=== PATIENT | male | born 1960 | race Caucasian/White ===

== ENCOUNTER 2017-08-11 06:59 | Inpatient (IN) | payer OTHER ==
[2017-08-11] MEDS ORDERED: NITROGLYCERIN/D5W 50 MG/250 ML BOTTLE IV ONE (07:09)
[2017-08-11] MEDS ORDERED: NITROGLYCERIN/DEXTROSE 250 ML IV ONE (07:10)
--- NOTE | 2017-08-11 07:11 | CPEKG ---
Heart Rate: 67 RR Interval: 896 P-R Interval: 184 QRSD Interval: 110 QT Interval: 432 QTC Interval: 456 P Sage: 19 QRS Sage: 47 T Wave Sage: 97 EKG Severity - ABNORMAL ECG - EKG Impression: SINUS RHYTHM EKG Impression: NONSPECIFIC INTRAVENTRICULAR CONDUCTION DELAY EKG Impression: BORDERLINE ST DEPRESSION, ANTEROLATERAL LEADS Electronically Signed By: Curtis Tolliver 11-Aug-2017 07:14:14
--- NOTE | 2017-08-11 07:12 | EDPHY ---
H & P Time Seen by Provider: 08/11/17 07:00 HPI/ROS: CHIEF COMPLAINT: Chest pain HISTORY OF PRESENT ILLNESS: History of myocardial infarction with stent at age 39, last stress test was 5 years ago. Primary care is Dr. Brett Caal. Awakened this morning at 6:20 a.m. With severe substernal chest pain radiating to both shoulders, not pleuritic. Symptoms severe and he took for oral 325 mg aspirin at home. Arrives without shortness of breath or vomiting. Received 1 oral nitroglycerin in the ambulance. Not better worse with anything. REVIEW OF SYSTEMS: Eye: no change in vision ENT: no sore throat Cardiac: HPI Pulmonary: no cough or SOB Abdomen: no vomiting, diarrhea, abdominal pain Musculoskeletal: no back pain Skin: no rash Neuro: no headache Constitutional: no fever : no urinary symptoms A comprehensive 10 point review of systems is otherwise negative aside from elements mentioned in the history of present illness. PAST MEDICAL HISTORY: Hypertension, diabetes, cardiac stent at age 39 in [place] Social history: Tobacco smoker currently General Appearance: Alert, appears moderately uncomfortable. Eyes: No scleral icterus. ENT, Mouth: Normal mucous membranes. Respiratory: Normal respiratory effort, breath sounds equal, lungs are clear to auscultation. Cardiovascular: Regular rate and rhythm. Gastrointestinal: Abdomen is soft and non tender. Neurological: Alert, face symmetric, normal motor and sensory in extremities. Skin: Warm and dry, no rashes. Musculoskeletal: No peripheral edema. Psychiatric: Not agitated. Emergency Department course/MDM: Patient took oral aspirin at home. IV nitroglycerin drip started here for chest pain with systolic 180 and diastolic 130. Initial EKG shows suggestion of inferior NH with ST elevation in 3 and AVF with reciprocal changes in the anterior leads. 712: Cardiac alert called and discussed with Dr. Schumacher. 717: Chest x-ray normal mediastinum width, no infiltrates or pneumothorax. 740: 171/123, hr 70, chest pain decreased, 97% O2 sat. IV nitroglycerin started and IV fluid resuscitation normal saline [address] changes. 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 Schumacher. Smoking Status: Current some day smoker Constitutional: Initial Vital Signs Temperature (C) 36.6 C 08/11/17 07:11 Heart Rate 74 08/11/17 07:11 Respiratory Rate 20 08/11/17 07:11 Blood Pressure 186/120 H 08/11/17 07:11 O2 Sat (%) 96 08/11/17 07:11 O2 Delivery Mode Room Air Allergies/Adverse Reactions: No Known Allergies Allergy (Unverified 08/11/17 07:11) Home Medications: Medication Instructions Recorded Lisinopril 08/11/17 Medical Decision Making - Diagnostics EKG Interpretation: 12-lead EKG interpreted by me; official reading is in trace master. My interpretation is sinus rhythm with inferior ST elevation in 3 and AVF with reciprocal anterior depression. Likely acute inferior NH. Imaging Results: Imaging Impressions Chest X-Ray 08/11/17 07:06 Impression: Borderline cardiomegaly with mild peribronchial thickening that could be related to fluid overload or bronchitis, without patrick failure. Chest x-ray does not show mediastinal widening personally interpreted Imaging: I viewed and interpreted images myself Differential Diagnosis: Differential diagnosis considered for chest pain including but not limited to myocardial ischemia, aortic dissection, pericarditis, pulmonary embolus, chest wall pain, pleural inflammation and pulmonary infectious causes. Critical Care Time: Critical care time spent by me, Dr. Tolliver, exclusively with the care of this patient was 35 minutes, exclusive of PA or TRAVEL INFORMATION CENTER SUPERVISOR time and exclusive of separate procedures. The organ system at risk was cardiovascular and I ordered multiple diagnostics, IV fluids, IV medications, cardiology consultation to stabilize the patient and prevent worsening of the patient's condition. - Data Points Laboratory Results: Laboratory Results 08/11/17 06:50 08/11/17 06:50 08/11/17 08/11/17 06:50 06:50 WBC 10.64 10^3/uL H 10^3/uL (3.80-9.50) RBC 6.14 10^6/uL 10^6/uL (4.40-6.38) Hgb 17.8 g/dL H g/dL (13.7-17.5) Hct 53.5 % H % (40.0-51.0) MCV 87.1 fL fL (81.5-99.8) MCH 29.0 pg pg (27.9-34.1) MCHC 33.3 g/dL g/dL (32.4-36.7) RDW 16.8 % H % (11.5-15.2) Plt Count 292 10^3/uL 10^3/uL (150-400) MPV 10.1 fL fL (8.7-11.7) Neut % (Auto) 55.6 % % (39.3-74.2) Lymph % (Auto) 27.8 % % (15.0-45.0) Heard % (Auto) 12.0 % % (4.5-13.0) Eos % (Auto) 3.2 % % (0.6-7.6) Baso % (Auto) 0.8 % % (0.3-1.7) Nucleat RBC Rel Count 0.0 % % (0.0-0.2) Absolute Neuts (auto) 5.92 10^3/uL 10^3/uL (1.70-6.50) Absolute Lymphs (auto) 2.96 10^3/uL 10^3/uL (1.00-3.00) Absolute Monos (auto) 1.28 10^3/uL H 10^3/uL (0.30-0.80) Absolute Eos (auto) 0.34 10^3/uL 10^3/uL (0.03-0.40) Absolute Basos (auto) 0.08 10^3/uL 10^3/uL (0.02-0.10) Absolute Nucleated RBC 0.00 10^3/uL 10^3/uL (0-0.01) Immature Gran % 0.6 % % (0.0-1.1) Immature Gran # 0.06 10^3/uL 10^3/uL (0.00-0.10) Sodium 143 mEq/L mEq/L (135-145) Potassium 3.7 mEq/L mEq/L (3.3-5.0) Chloride 98 mEq/L mEq/L (97-110) Carbon Dioxide 29 mEq/l mEq/l (22-31) Anion Gap 16 mEq/L mEq/L (8-16) BUN 14 mg/dL mg/dL (7-23) Creatinine 0.7 mg/dL mg/dL (0.7-1.3) Estimated GFR > 60 Glucose 147 mg/dL H mg/dL (70-100) Calcium 9.4 mg/dL mg/dL (8.5-10.4) Troponin I < 0.012 ng/mL ng/mL (0.000-0.034) Medications Given: Discontinued Medications Nitroglycerin/Dextrose (Nitroglycerin 200 Mcg/Ml (Premix)) 250 mls @ 0 mls/hr IV CONT ONE; Titrate PRN Reason: Protocol Stop: 08/11/17 07:11 Last Admin: 08/11/17 07:20 Dose: 250 mls Sodium Chloride (Ns) 1,000 mls @ 0 mls/hr IV EDNOW ONE; Wide Open PRN Reason: Protocol Stop: 08/11/17 07:45 Last Admin: 08/11/17 07:52 Dose: 1,000 mls Departure - Departure Disposition: To OP Cath/Surgery Clinical Impression: Acute myocardial infarction Qualifiers: Myocardial infarction type: unspecified Involved coronary artery: unspecified coronary artery Qualified Code(s): I21.9 - Acute myocardial infarction, unspecified Hypertension Qualifiers: Hypertension type: unspecified Qualified Code(s): I10 - Essential (primary) hypertension Condition: Serious
[2017-08-11 07:15] LABS: PLATELET COUNT 292 10^3/uL (150-400)
[2017-08-11] MEDS ORDERED: LIDOCAINE 1% 300 MG/30 ML SDV ONE (07:17)
[2017-08-11] MEDS ORDERED: IOPAMIDOL (ISOVUE-370) 150 ML BTL IV ONE ×2 (07:17→08:13)
[2017-08-11] MEDS ORDERED: CLOPIDOGREL BISULFATE 75 MG TAB ONE (07:17)
[2017-08-11] MEDS ORDERED: NITROGLYCERIN 1,500 MCG/15 ML VIAL MISC ONE (07:20)
[2017-08-11] MEDS ORDERED: ATROPINE SULFATE 1 MG/10 ML SYR ONE (07:20)
[2017-08-11] MEDS ORDERED: HEPARIN 10,000 UNIT/10 ML MDV (1,000 UNIT/ML) ONE (07:20)
[2017-08-11] MEDS ORDERED: fentaNYL 100 MCG/2 ML INJ ONE ×2 (07:20→08:33)
[2017-08-11] MEDS ORDERED: EPINEPHrine 1 MG/10 ML SYR IVP ONE (07:20)
[2017-08-11] MEDS ORDERED: MIDAZOLAM 2 MG/2 ML VIAL ONE ×3 (07:20→08:33)
[2017-08-11] MEDS ORDERED: BIVALIRUDIN 250 MG/5 ML VIAL IV ONE ×2 (07:21→08:09)
[2017-08-11] MEDS ORDERED: NS 1,000 ML IV ONE (07:44)
[2017-08-11] MEDS ORDERED: VERAPAMIL 5 MG/2 ML VIAL ONE (07:48)
--- NOTE | 2017-08-11 07:56 | PDPROPOC ---
Sedation Plan of Care Sedation Plan of Care: vital signs stable, mental status noted, patient educated of risks, benefits, alternatives, patient can tolerate sedation ASA Classification: ASA 3 Planned drugs: fentanyl, midazolam Mallampati Score: Class 4 Mallampati Reference Image: Patient passed 3-3-2 rule?: No (sleep apnea high risk airway)
[2017-08-11] MEDS ORDERED: niCARdipine 25 MG/10 ML VIAL IV ONE (08:24)
[2017-08-11] MEDS ORDERED: ABCIXIMAB 10 MG/5 ML VIAL ONE ×2 (08:47→08:51)
--- NOTE | 2017-08-11 08:52 | PDHPUP ---
History & Physical Update H&P update statement: This history and physical update is based on an assessment of the patient which was completed after admission or registration (within 24 hours), but prior to the surgery/procedure. H&P update: H&P reviewed & patient examined, no change in patient's condition since H&P completed
[2017-08-11] MEDS ORDERED: TICAGRELOR 90 MG TAB ONE (09:29)
--- NOTE | 2017-08-11 09:40 | PDDXCAT ---
Diagnostic Cath Note - . Date: 08/11/17 Campground Attendant: Winsome Indication: CCC Class III and IV angina on medical treatment, other (Inferior and true posterior myocardial infarction) - Procedure Access: left wrist Procedure: left heart catheterization, coronary angiography, other (coronary catheterization) - Materials Left Heart Cath size: 6F Left Heart Cath materials: standard multipack (JL4, JR4, pigtail) - Findings-Left Heart Catheterization LAD: LAD proximally is 4.5 mm in size. It is severely diseased. There is 85% obstruction of the first diagonal. There is a 90% obstruction of the second diagonal. The LAD proper after second diagonal is severely diseased with a 90% obstruction of the LAD proper. The third diagonal is the largest and 2 mm vessel without flow limiting obstruction. The mid and distal LAD are diffusely diseased. There is another flow limiting obstruction near the apex. LCX: The LCX comes from a common ostium of left main coronary cusp. It is 3mm in size. There is 100% ostial occlusion of the circumflex. SILVIA 0 flow. The circumflex proximally is 3.5 mm in size. It trifurcates into a first OM, second OM (which is the largest and occluded), and circumflex proper. RCA: The RCA is dominant. It is 4 mm in size proximally. It has an 80% obstruction in the mid right, distal to the RV branch takeoff. The vessel is diffusely diseased. EDP: Not measured. LVEF: No LV gram was performed due to the amount of IV contrast the patient recieved in order to repair the infarct related vessel. Complications: NONE. Estimated blood loss: <50ml Closure method: TR Band Assessment: The patient has diffuse upper [place]aponi vessel coronary disease with severe obstructive disease involving the RCA and LAD distribution. He is diabetic, morbidly obese and continues to smoke. He is at highest risk of recurrent events. Plan: The patient has diffuse and severely obstructive disease in the LAD, diagonals 1 and 2, and the RCA. He will require bypass surgery due to the severity of disease. Dual antiplatelet therapy with Aspirin 81mg and Brilinta 90mg BID for at least 4 to 6 weeks following bare metal stent implantation. Decisions to stop dual antiplatelet therapy before this time should involve our office at [facility], . Intervention: 6 Czech 4.0 EBU catheter was used for guide catheter support. A 0.014 Intuition wire was advanced across the circ OM 2 under direct fluoroscopic and angiographic guidance. A second wire was advanced into the circumflex proper to help improve guide catheter support. The patient's body habitus precluded significant angulation of the image intensifier and guide support was inadequate. The circ OM 2 was ballooned open with a 2.0 x 15 Emerge balloon improving the flow from SILVIA 0 to SILVIA I. A 6 Czech Guideliner was advanced over the two wires and the circ OM 2 was secondarily ballooned with a 4.0 x 15 Emerge balloon. We were then able to better visualize the circumflex with the Guidliner in place. It was clear that the obstruction was in the middle fork of a trifurcation of the proximal circumflex. We then performed acute infarct angioplasty with a 3.5 x 24 mm Rebel Bare Metal Stent, deployed at a maximal pressure of 18 DANIEL. This was deployed in the ostium of the circ OM 2 without compromise of the circ proper or the OM 1 branch. The guiding catheter wires and Guideliner and stent delivery system were all removed from the body. The catheter was exchanged for a JL4 diagnostic catheter. Selective injections of the left circumflex documented a 10 % residual steatosis and SILVIA III flow to distal vessel. There was still evidence of branch vessel obstruction which may have been related to plaque or clot because the patient was clinically stable and chest pain free we did not elect to proceed with further intervention given the volume of contrast medium which had been required. Selective injection of the LAD documented the severe disease previously noted in this repot. A BARE METAL STENT WAS PURPOSEFULLY USED IN ORDER TO LEAVE THE OPTIONS OPEN FOR A BYPASS SURGERY IN THIS DIABETIC PATIENT. 4-6 WEEKS OUT WE SHOULD BE ABLE TO SAFELY STOP DUAL ANTIPLATELET THERAPY AROUND THE TIME OF AN OPERATION. Patient Problems: Problems Problem Status Onset Acute myocardial infarction Acute Hypertension Acute
[2017-08-11] MEDS ORDERED: ASPIRIN EC 325 MG TAB PO ONE (09:45)
[2017-08-11] MEDS ORDERED: NITROGLYCERIN 0.4 MG BTL SL PRN (09:45)
[2017-08-11] MEDS ORDERED: LORazepam 2 MG/ML INJ IVP PRN (09:45)
[2017-08-11] MEDS ORDERED: NS 1,000 ML IV SCH (09:45)
[2017-08-11] MEDS ORDERED: OXYCODONE/APAP 5/325 TAB PO PRN (09:45)
[2017-08-11] MEDS ORDERED: ATROPINE SULFATE 1 MG/10 ML SYR IVP PRN (09:45)
[2017-08-11] MEDS ORDERED: ONDANSETRON 4 MG/2 ML VIAL IVP PRN (09:45)
[2017-08-11] MEDS ORDERED: TEMAZEPAM 15 MG CAP PO PRN (09:45)
[2017-08-11] MEDS ORDERED: HYDROCODONE/APAP 5/325 TAB PO PRN (09:45)
[2017-08-11] MEDS ORDERED: TICAGRELOR 90 MG TAB PO ONE (09:45)
--- NOTE | 2017-08-11 10:36 | GHP ---
[f rep st] HISTORY AND PHYSICAL DATE OF ADMISSION: 08/11/2017 CHIEF COMPLAINT: "Doctor, I'm having chest pain." HISTORY OF PRESENT ILLNESS: The patient is a 57-year-old obese diabetic man who presented to the [facility] department with acute onset of chest discomfort. The patient has a history of a prior stent a t the time of a threatened myocardial infarction 18 years ago at age 39. His last stress test was 5 years ago. His primary care doctor is Dr. Corbin at [place]. He awakened this morning at 6:20 am wi th severe retrosternal chest pain that radiated to both shoulders. He took 325 mg of aspirin at home and presented to the emergency department via ambulance for further evaluation. He has not been rec ently ill, had recent protracted travel. REVIEW OF SYSTEMS: A 10-point review of systems is negative for cough, recent fever, shortness of br eath, melena, hematemesis, or rash. PAST MEDICAL HISTORY: Significant for cardiac stent in [place]; he believes at the [facility] in [place]. He has a history of hypertension, diabetes, and dyslipidemia. He continues to smoke a pack of cigarettes per week. History of sleep apnea. PHYSICAL EXAMINATION: GENERAL: The patient appears anxious and is diaphoretic. He appears to be ac utely ill. He is morbidly obese. VITAL SIGNS: His blood pressure is elevated at 186/120, heart rate is 76 and regular, respirations are 16 and nonlabored. He has 96% oxygen sat on 2 L by nasal cannul a. The temperature is 36.6. NECK: No obvious JVD. HEART: Normal S1 and S2 without a murmur or rub . His heart sounds are very distant, given his body habitus, and this precludes an accurate examinat ion. ABDOMEN: Obese with positive bowel sounds. It is nondistended and nontender. EXTREMITIES: W arm and dry. He has palpable dorsalis pedis and posterior tibial and radial pulses bilaterally. He had a plethysmography trace assisted Sterling test documenting dual arterial supply to the left hand wit h a planned approach, given his body habitus, of the left radial approach. NEUROLOGIC: Pertinent fo r the fact that he is alert and oriented x3. PSYCHIATRIC: He is cooperative and appears to be anxio us and somewhat worried. He is in fairly obvious pain. IMAGING: His EKG reveals sinus rhythm with ST-segment elevation in II, III, and AVF, as well as reci procal changes and ST depression in V2 and V3, consistent with an inferior posterior pattern. These findings are consistent with acute inferior and probably true posterior myocardial infarction. The portable chest x-ray reveals some degree of apical lordosis. The cardiac silhouette is significa ntly enlarged. This may be in part secondary to the portable examination. The lung markings are dif fusely increased which could be related to fluid overload. I did review the raw data of the chest x-ray and EKG. LABORATORY STUDIES: White count of 10.64, elevated hemoglobin and hematocrit of 17.8 and 53.5, plate let count 292. BUN and creatinine were 14 and 0.7 with an estimated GFR of 60. Fasting blood glucos e is 147. His calcium is 9.4. Sodium and potassium were 143 and 3.7. The troponin is less than 0.0 12 ng/mL on the initial presentation. SOCIAL HISTORY: He is a current smoker. He does not abuse alcohol or illicit drugs. 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 IMPRESSION AND PLAN: The patient has an acute ST-segment elevation myocardial infarction involving t he inferior and probably posterior circulation. The patient will be taken emergently to the cardiac catheterization laboratory for definitive angiography and probable acute infarct angioplasty and sten t implantation of the infarct-related artery. I have explained the risks, benefits, and alternatives of this course of action to the patient who understands and is willing to proceed as planned. Copy requested to: PCP /[id number]/MODL
--- NOTE | 2017-08-11 11:53 | PDMN ---
Medical Necessity Medical necessity: Patient meets inpatient criteria per physician note and MCG M -230 ID (presents w/acute chest pain, history of CAD; EKG shows acute inferior ID, probable true posterior ID; taken emergently to laborer construction or leak gang where diffuse CAD was noted/cardiac bypass surgery recommended; bare metal stenting in interim.)
--- NOTE | 2017-08-11 13:33 | ASMTCMCOM ---
CM Note CM Note Notes: Pt admitted w/chest pain. He was taken for emergent heart cath and found to have diffuse disease, received stent, and will need bypass surgery in 4-6 weeks per MD note. Anticipate that he will dc home independantly when medically stable and then likely return for surgery. Date Signed: 08/11/2017 01:32 PM Electronically Signed By:Jenna Henley RN
[2017-08-11 15:29] LABS: CREATINE KINASE 2584 IU/L (0-224)
--- NOTE | 2017-08-11 16:43 | GCON ---
[f rep st] CONSULTATION PULMONARY/CRITICAL CARE CONSULTATION DATE OF CONSULTATION: 08/11/2017 REQUESTING PROVIDER: Lowell Schumacher MD. REASON FOR REFERRAL: Evaluation and management of dyspnea and obstructive sleep apnea. HISTORY: The patient is a 57-year-old male with a prior history of coronary artery disease status po st stenting, who presented to the hospital this morning with acute onset of chest pain. He was taken emergently to the catheterization lab where he was found to have 3-vessel disease with a culprit les ion which was stented. The patient reports relief of his pain. He states that he generally does pre tty well in terms of activity tolerance. 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 He walks a fair amount with a toolbox. He has however noticed that recently he sometimes has to stop or slow down for longer walks. He has not been diagnosed with any smoking-related lung disease and reyes s not usually have a cough. The patient has had a productive cough recently. He has not been on any inhalers. He also reports a long history of snoring and witnessed apneas. His sleep is nonrefreshi ng. He has thought that he might have sleep apnea for quite a while but has been unable to have this evaluated at [place]. PAST MEDICAL HISTORY: 1. Coronary artery disease status post stenting 18 years ago. 2. History of hypertension. 3. Diabetes. 4. Dyslipidemia. ADMISSION MEDICATIONS: Include lisinopril, HCTZ, atorvastatin, metformin, atenolol, aspirin. SOCIAL HISTORY: The patient smokes about a pack of cigarettes a week and has smoked this for years. He cut down a bit recently due to recent onset of a productive cough. FAMILY HISTORY: Unremarkable. REVIEW OF SYSTEMS: A 10-point review of systems adds nothing to the history of present illness. PHYSICAL EXAMINATION: GENERAL: The patient is awake and alert. He is in no acute distress. VITAL SIGNS: Blood pressure is 145/99 with a heart rate of 80. He is afebrile. Oxygen saturations are 97 % on 4 L. HEENT: Normocephalic and atraumatic. No icterus. NECK: No adenopathy. Trachea is midl ine. CHEST: Clear to auscultation. CARDIAC: Regular rate and rhythm without murmur. ABDOMEN: So ft, nontender. Bowel sounds are present. EXTREMITIES: No clubbing, cyanosis, or edema. NEURO: Th e patient is awake, alert. He has no gross motor or sensory deficits. LABORATORY: White blood count is 10.6, hemoglobin 17.8. Chemistry group is normal. Glucose is 147. Troponin is elevated at 68.5. A chest x-ray shows borderline cardiomegaly. Images reviewed by me. ASSESSMENT: 1. Status post acute myocardial infarction. The patient's catheterization showed severe 3-vessel co ronary artery disease, and coronary artery bypass grafting will likely be recommended. 2. Dyspnea. This is likely due to a combination of obesity, as well as possibly smoking-related josi g disease and also heart disease, also coronary artery disease and possibly systolic dysfunction, alt guillermo this has not been assessed with another measurement of left ventricular ejection fraction. He is currently comfortable. 3. Obstructive sleep apnea. This is highly suspected based on patient's history and obesity. This could contribute to increasing his risk of recurrent coronary artery disease. 4. Polycythemia. I suspect this is due to hypoxemia, given the patient's obesity and probable obstr uctive sleep apnea. RECOMMENDATIONS: 1. In the hospital, the patient will be given p.r.n. albuterol for dyspnea. The patient was encoura ged to stop smoking. Weight loss will also likely be beneficial. He should have an outpatient evalu ation for sleep apnea. This could be pursued through [facility]. 2. He may benefit from an echocardiogram to look both LV ejection fraction, as well as to assess for pulmonary hypertension. 3. Follow hemoglobin level to ensure that he does not have severe polycythemia. /[id number]/MODL
[2017-08-11 17:22] LABS: CREATINE KINASE 1339 IU/L (0-224)
[2017-08-11] MEDS: CARVEDILOL 6.25 MG TAB PO SCH (17:34)
[2017-08-11] MEDS: TICAGRELOR 90 MG TAB PO SCH (21:41)
[2017-08-12 04:38] LABS: PLATELET COUNT 264 10^3/uL (150-400)
[2017-08-12 05:03] LABS: CREATINE KINASE 830 IU/L (0-224)
[2017-08-12] MEDS ORDERED: LISINOPRIL 40 MG TAB PO SCH (09:00)
[2017-08-12] MEDS: TICAGRELOR 90 MG TAB PO SCH ×2 (10:18→21:27)
[2017-08-12] MEDS: ATORVASTATIN CALCIUM 40 MG TAB PO SCH (10:18)
[2017-08-12] MEDS: ASPIRIN EC 81 MG TAB PO SCH (10:18)
[2017-08-12] MEDS: LISINOPRIL 40 MG TAB PO SCH (10:18)
[2017-08-12] MEDS: CARVEDILOL 6.25 MG TAB PO SCH ×2 (10:19→17:51)
--- NOTE | 2017-08-12 14:01 | PDINTPN ---
Endorsement Clerk Progress Note Assessment/Plan: Assessment: S/P Acute [place]: S/P emergent stent placement. HD stable, no signs of ongoing ischemia. Has severe 3 vessel CAD, CABG will be recommended. Diabetes: BSs well controlled with OHAs WINSTON: Presumed, undiagnosed. May have significant nocturnal hypoxemia, and may benefit from supplemental oxygen at discharge until sleep study can be arranged. HTN: BP running high, 150s/90, on lisinopril and Coreg Plan: Increase activity as tolerated. Antihypertensive Rx as per Dr. Schumacher. Hopefully discharge on home O2 until home sleep study can be arranged. 08/12/17 14:04 Subjective: Feels better, no CP, dyspnea. Able to walk to bathroom without assist. Objective: Vital Signs Temp Pulse Resp BP Pulse Ox 36.6 C 70 18 155/90 H 95 08/11/17 23:33 08/12/17 04:00 08/12/17 04:00 08/12/17 04:00 08/12/17 04:00 Laboratory Results 08/12/17 04:20 08/12/17 04:20 08/11/17 08/12/17 08/13/17 05:59 05:59 05:59 Intake Total 1350 Output Total 625 Balance 725 Physical Exam - Physical Exam General Appearance: alert, no apparent distress EENT: normal ENT inspection Neck: normal inspection Respiratory: lungs clear, normal breath sounds Cardiac/Chest: regular rate, rhythm, edema (1+) Abdomen: normal bowel sounds, non-tender Skin: normal color, warm/dry Extremities: normal inspection Neuro/Psych: alert, normal mood/affect, oriented x 3 ICD10 Worksheet Patient Problems: Problems Problem Status Onset Acute myocardial infarction Acute Hypertension Acute
--- NOTE | 2017-08-12 14:47 | ASMTCMCOM ---
CM Note CM Note Notes: Dr. Schumacher to see patient this afternoon. Patient may be d/c'ed today as he needs to wait 4 weeks for his next surgery.No d/c needs at this time. CM available if needs arise. Date Signed: 08/12/2017 02:47 PM Electronically Signed By:Alisha Olivarez LCSW
--- NOTE | 2017-08-12 15:47 | ECHO ---
[email or web address] [address] [address] Main: [phone] Fax: Transthoracic Echocardiogram Name: SEMAJ CHAUDHRY MR#: [id number] Study Date: 08/12/2017 Study Time: 02:31 PM Date of : 1960 Age: 57 year(s) Height: 177.8 cm (70 in.) Weight: 149.69 kg (330 lb.) BSA: 2.58 m2 Gender: Male Examination: Echo Indication: Post Cath Image Quality: Contrast: Requested by: Lowell Schumacher BP: 150 mmHg/97 mmHg Heart Rate: Rhythm: Normal sinus rhythm Indication: Post Cath Procedure Staff Student Activities Director: Anthony Marcano RDCS Reading Physician: Thony Hess MD Requesting Provider: Conclusions: Normal size left ventricle. There is basilar to mid inferolateral hypokinesis. There is inferior inferoseptal hypokinesis.. Normal RV function. The left atrium is normal in size. The right atrium is normal in size. The mitral valve is normal in appearance and function. There is no mitral valve regurgitation. The aortic valve is normal in appearance and function. There is no aortic valve regurgitation. No aortic valve stenosis is present. Trivial tricuspid valve regurgitation. The pulmonic valve is normal in appearance and function. No previous Measurements: Chambers Valvular Assessment AV/MV Valvular Assessment TV/PV Normal Normal Normal Name Value Range Name Value Range Name Value Range IVSd (2D): 1.3 cm (0.6 cm-1.1 AV Vmax: 0.94 m/s (1 m/s-1.7 PV Vmax: 0.94 m/s (0.6 m/s-0.9 cm) m/s) m/s) LVDd (2D): 4.1 cm (4.2 cm-5.9 AV maxP mmHg ( - ) PV PGmax: 4 mmHg ( - ) cm) LVOT Vmax: 0.74 m/s (0.7 m/s-1.1 LVDs (2D): 3.2 cm (2.1 cm-4 m/s) cm) MV E Vmax: 0.78 m/s ( - ) LVPWd (2D): 1.4 cm (0.6 cm-1 MV A Vmax: 0.67 m/s ( - ) cm) MV E/A: 1.16 ( - ) LVEF (BP): 41 % (>=55 %) Continued Measurements: Valvular Assessment AV/MV Patient: SEMAJ CHAUDHRY Study Date: 08/12/2017 Page 1 of 2 02:31 PM Name Value MV E' Septal: 0.05 m/s MV E/E' Septal: 15.80 MV E/E' Lateral: 12.00 Findings: Left Ventricle: Normal size left ventricle. There is basilar to mid inferolateral hypokinesis. There is inferior inferoseptal hypokinesis.. Right Ventricle: Normal size right ventricle. Normal RV function. Left Atrium: The left atrium is normal in size. Right Atrium: The right atrium is normal in size. Mitral Valve: The mitral valve is normal in appearance and function. There is no mitral valve regurgitation. Aortic Valve: The aortic valve is normal in appearance and function. There is no aortic valve regurgitation. No aortic valve stenosis is present. Tricuspid Valve: The tricuspid valve appears normal. Trivial tricuspid valve regurgitation. Pulmonic Valve: The pulmonic valve is normal in appearance and function. Aorta: The aorta is normal. Pericardium: No pericardial effusion. (No Signature Object) Patient: SEMAJ CHAUDHRY Study Date: 08/12/2017 Page 2 of 2 02:31 PM [id number]
[2017-08-13 07:54] VITALS: BP 158/88
[2017-08-13] MEDS: CARVEDILOL 6.25 MG TAB PO SCH (08:17)
[2017-08-13] MEDS: ATORVASTATIN CALCIUM 40 MG TAB PO SCH (08:17)
[2017-08-13] MEDS: TICAGRELOR 90 MG TAB PO SCH (08:17)
[2017-08-13] MEDS: ASPIRIN EC 81 MG TAB PO SCH (08:18)
[2017-08-13] MEDS: LISINOPRIL 40 MG TAB PO SCH (08:18)
--- NOTE | 2017-08-13 09:54 | PDCARPN ---
Cardiology Progress Note Chief Complaint: No cardiovascular complaints were voiced this morning. Assessment/Plan: Assessment: Patient is a 57 y/o male with history of CAD s/p PCI (age 39), HTN, HLP, and obesity, with ongoing tobacco use, who presented to [facility] after complaints of chest pains were voiced. Patient's work up with ECG and findings highly suggestive of STEMI to the inferior wall. Patient was taken to the cardiac labor relations teacher and notable three vessel CAD was appreciated. The culprit lesion was the circumflex lesion, and Dr. Camille Schumacher placed a bare metal stent given pending need for further, surgical intervention. Patient has done well since the intervention. Outpatient follow up with (Dr. Kimberly Banuelos) is pending. Echocardiogram with LVEF estimated to be 40-45%. No chest pains or pressure, no PND or orthopnea. Significant other was present in the room with the patient today. Plan: (1) Discharge patient to home today (2) I will contact cardiology to see if the patient could get in to be seen sooner (3) Would continue therapy on ASA (81 mg per day) and Brilinta (90 mg twice per day) (4) Statins should continue (lipitor 80 mg PO QHS) and maintain annual assessment of cholesterol and LFTs (5) Coreg (12.5 mg twice per day) and Zestril (40 mg per day) should continue for HTN and the ischaemic CMP appreciated (6) Would refrain from stressful situations (work in particular) given the critical lesions that remain to the LAD and RCA systems (7) Strong recommendations for smoking cessation (8) Diet low in cholesterol and sat fat (9) Weight loss also recommended Subjective: No cardiovascular complaint. Reviewed/Discussed With: family Objective: Vital Signs (8 Hrs) Temp Pulse Resp BP Pulse Ox 08/13/17 08:18 158/88 H 08/13/17 08:17 73 158/88 H 08/13/17 07:51 37.1 C 82 21 H 158/88 H 93 Intake/Output (24 Hrs) 08/12/17 08/13/17 08/14/17 05:59 05:59 05:59 Intake Total 1350 850 Output Total 625 Balance 725 850 Intake: Oral (ml) 1100 850 IV Infused (ml) 250 Output: Urine (ml) 625 Urinal 625 Other: Weight 149.685 kg Intake Quantity Yes Sufficient Number of Voids Toilet 3 5 Urinal 2 3 Result Diagrams: 08/12/17 04:20 08/12/17 04:20 Cardiac Labs: Cardiac Lab Results (72 Hrs) 08/12/17 08/11/17 08/11/17 04:20 16:30 13:00 CK-MB (CK-2) Fraction 35.70 H 87.80 H 122.00 H Troponin I 23.800 H 55.200 H 68.500 H Telemetry: sinus rhythm Echocardiogram: LVEF at 40-45%. Inferolateral/inferoseptal hypokinesis noted. - Physical Exam Constitutional: WDWN, healthy appearing, no apparent distress, obese Eyes: PERRL, EOMI Ears, Nose, Mouth, Throat: moist mucous membranes Cardiovascular: regular rate and rhythm, no murmurs, no rubs, no gallops, pulses symmetric bilat, No jugular vein distention Peripheral Pulses: 2+: dorsalis-pedis (R), dorsalis-pedis (L) Respiratory: clear to auscultate bilat, no crackles, no wheezes Gastrointestinal: normoactive bowel sounds Skin: no rashes, no edema Musculoskeletal: no muscular tenderness, no joint effusions Neurologic: AAOx3, CN II-XII grossly intact Psychiatric: cooperative, interactive, following commands ICD10 Worksheet Patient Problems: Problems Problem Status Onset Acute myocardial infarction Acute Hypertension Acute
--- NOTE | 2017-08-13 10:31 | PDDCSUM ---
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 ECG with findings indicative of an inferior STEMI, and the patient was taken urgently to the cardiac laborer electroplating. In the lab, severe, triple vessel CAD was noted (85% to D1, 90% to D2, and 90% to the distal portion of LAD proper; 100% occlusion of ostial LCX s/p bare metal stent [3.5 X 24 mm Rebel]; 80% mid RCA lesion). No LV gram was performed given fluoro time and IV contrast burden, but echocardiogram was completed and revealed inferolateral and inferoseptal hypokinesis with LVEF of 40-45%. Patient was on medical therapy (ASA, statins, beta blockers, and ACEi) at the time of admission, but manipulation of medical therapy was implemented. Anxiety continues to be moderate (as expected). Discharge medications: (1) ASA 81 mg per day (2) Brilinta 90 mg twice per day (3) Lipitor 80 mg once per day (4) Coreg 12.5 mg twice per day (5) Zestril 40 mg per day (6) Valium 2 mg (#5) for anxiety Patient has been doing well since intervention without active cardiovascular complaints voiced. There is an expected degree of anxiety. Call to cardiology with brief summary of hospital stay. Patient was told to revisit ER (closest) should there be return of symptoms of concern to the patient. Plan for 30-45 days on Brilinta given the BMS to the LCX system (if possible) prior to proceeding with CABG.
--- NOTE | 2017-08-14 15:52 | ASMTLACE ---
LACE Length of stay for Answers: 2 days current admission Acuity / Level of Answers: Yes Care: Did the patient have an inpatient admission? Comorbidities - select Answers: Coronary Artery Disease all that apply Diabetes (uncontrolled or controlled) Other Notes: hx of threatened [place], HTN, dyslipidemia, smo ker # of Emergency department Answers: 1-2 visits in the last 6 months Score: 10 Date Signed: 08/14/2017 03:52 PM Electronically Signed By:Karol Brown RN
--- NOTE | 2017-08-14 15:57 | ASDISCHSUM ---
Discharge Information Plan Status:Home with No Needs Medically Cleared to Leave:08/13/2017 Discharge Date:08/13/2017 11:00 AM CM D/C Disposition:Home, Routine, Self-Care ADT D/C Disposition:Home, Routine, Self-Care Projected Discharge Date:08/13/2017 11:00 AM Transportation at D/C:Family Discharge Delay Reason: Follow-Up Date:08/13/2017 11:00 AM Discharge Slot:2 - 12:01 pm - 18:00 pm Final Diagnosis:Inferior [place], s/p PCI, residual lesions LAD, RCA, needs CABG, DM, HTN, smoker Placement Information Patient Contact Information Contact Name:LON Relationship:Other Address:[address] [place] [address] Work Phone: [facility]:[employer] Alternate Phone: [facility]/Zip Code:[place] [address] Email: Financial Information Financial Class:HMO and PPO Plans Primary Plan Desc:[facility] Primary Plan Number:[id number] Secondary Plan Desc: Secondary Plan Number: Assessment Information LACE LACE Length of stay for Answers: 2 days current admission Acuity / Level of Answers: Yes Care: Did the patient have an inpatient admission? Comorbidities - select Answers: Coronary Artery Disease all that apply Diabetes (uncontrolled or controlled) Other Notes: hx of threatened [place], HTN, dyslipidemia, smo ker # of Emergency department Answers: 1-2 visits in the last 6 months Score: 10 Date Signed: 08/14/2017 03:52 PM Electronically Signed By:Karol Brown RN [facility] CM Progress Note CM Note CM Note Notes: Pt admitted w/chest pain. He was taken for emergent heart cath and found to have diffuse disease, received stent, and will need bypass surgery in 4-6 weeks per MD note. Anticipate that he will dc home independantly when medically stable and then likely return for surgery. Date Signed: 08/11/2017 01:32 PM Electronically Signed By:Jenna Henley RN [facility] CM Progress Note CM Note CM Note Notes: Dr. Schumacher to see patient this afternoon. Patient may be d/c'ed today as he needs to wait 4 weeks for his next surgery.No d/c needs at this time. CM available if needs arise. Date Signed: 08/12/2017 02:47 PM Electronically Signed By:Alisha Olivarez LCSW Case Management Discharge Plan Note Case Management Discharge Discharge Order Complete? 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 Per MD notes, pt to discharge home independently today with no identified needs. Pt will need a CABG in 4-6 weeks for residual lesions to the LAD and RCA. Pt to follow up as directed. No IM signed, not applicable, pt has Caal. available for any further issues or concerns. Discharge Plan: Home independently Date Signed: 08/14/2017 03:56 PM Electronically Signed By:Karol Brown RN Intervention Information
== END 2017-08-13 11:00 | disposition home or self-care (01) | DRG 249 ==
LOC: F2N 09:40
PROVIDERS: ADMIT Internal Medicine Cardiovascular Disease; ATTEND Internal Medicine Cardiovascular Disease
DX: I21.11 ST elevation (STEMI) myocardial infarction involving right coronary artery (principal); I25.119 Atherosclerotic heart disease of native coronary artery with unspecified angina pectoris; I10 Essential (primary) hypertension; E66.01 Morbid (severe) obesity due to excess calories; Z68.42 Body mass index [BMI] 45.0-49.9, adult; R06.00 Dyspnea, unspecified; E11.9 Type 2 diabetes mellitus without complications; F17.210 Nicotine dependence, cigarettes, uncomplicated; I25.2 Old myocardial infarction; E78.5 Hyperlipidemia, unspecified; G47.33 Obstructive sleep apnea (adult) (pediatric); D75.1 Secondary polycythemia; Z95.5 Presence of coronary angioplasty implant and graft
CPT/HCPCS: 96365; C1725; C1769; C1876; C1887; J0130; J0461; J0583; J1200; J1644; J2060; J2250; J3010; Q9967